=== PATIENT | female | born 1985 | race American Indian/Alaskan Native ===

== ENCOUNTER 2019-02-13 07:12 | Emergency (ER) | payer SELFPAY ==
[2019-02-13] MEDS ORDERED: FLEXERIL PO ONE (09:19)
[2019-02-13] MEDS ORDERED: TORADOL IM ONE (09:19)
--- NOTE | 2019-02-13 09:24 | Emergency Department Report ---
ED Neck Pain/Injury HPI - General Chief Complaint: Back Pain/Injury Stated Complaint: NECK/BACK PAIN/SOB Time Seen by Provider: 02/13/19 09:11 Mode of arrival: Wheelchair Limitations: No Limitations - History of Present Illness Initial Comments: Physical [id number] female ambulatory in no prior-medical conditions presents complaining of back pain times this morning. Patient states when she called this morning she felt pain localized to the neck and upper back region. Patient denies any trauma, injuries or falls. She denies fevers/chills/headache/visual disturbances. Patient states pain MD Complaint: neck pain, upper back pain -: Sudden (this morning) Place: home Severity: moderate Severity scale (0 -10): 8 Quality: stabbing, aching Consistency: constant, intermittent Worsens With: movement of neck Context: unknown Associated Symptoms: denies: difficulty walking, difficulty swallowing - Related Data Previous Rx's Medication Instructions Recorded Last Taken Type Cyclobenzaprine [Flexeril] 10 mg PO QHS PRN #20 tablet 02/13/19 Unknown Rx Naproxen [Naprosyn] 500 mg PO BID #30 tablet 02/13/19 Unknown Rx Allergies Allergy/AdvReac Type Severity Reaction Status Date / Time No Known Allergies Allergy Verified 02/13/19 10:10 ED Review of Systems ROS: Stated complaint: NECK/BACK PAIN/SOB Other details as noted in HPI ED Past Medical Hx - Past Medical History Previous Medical History?: No - Surgical History Additional Surgical History: TUBES REMOVED - Social History Smoking Status: Never Smoker Substance Use Type: None - Medications Home Medications: Home Medications Medication Instructions Recorded Confirmed Last Taken Type Cyclobenzaprine [Flexeril] 10 mg PO QHS PRN #20 tablet 02/13/19 Unknown Rx Naproxen [Naprosyn] 500 mg PO BID #30 tablet 02/13/19 Unknown Rx ED Physical Exam - General Limitations: No Limitations General appearance: alert, in no apparent distress - Head Head exam: Present: atraumatic, normocephalic - Eye Eye exam: Present: normal appearance - ENT ENT exam: Present: mucous membranes moist - Neck Neck exam: Present: normal inspection, tenderness, full ROM (with pain), other (no nucal rigidity). Absent: lymphadenopathy - Respiratory Respiratory exam: Present: normal lung sounds bilaterally. Absent: respiratory distress - Cardiovascular Cardiovascular Exam: Present: regular rate, normal rhythm. Absent: systolic murmur, diastolic murmur, rubs, gallop - GI/Abdominal GI/Abdominal exam: Present: soft, normal bowel sounds - Extremities Exam Extremities exam: Present: normal inspection - Back Exam Back exam: Present: normal inspection - Neurological Exam Neurological exam: Present: alert, oriented X3 - Psychiatric Psychiatric exam: Present: normal affect, normal mood - Skin Skin exam: Present: warm, dry, intact, normal color. Absent: rash ED Course Vital Signs 02/13/19 02/13/19 02/13/19 07:29 09:33 12:15 Temperature 97.4 F L 98.0 F Pulse Rate 79 61 Respiratory 24 20 16 Rate Blood Pressure 106/79 107/75 [Left] O2 Sat by Pulse 100 100 Oximetry - Reevaluation(s) Reevaluation #1: Patient received pain medication, Upon reassessment at this time Patient is no longer in distress she is not crying. Patient states she feels better. She is laying down in the ED bed. She is able to move her neck. Full range of motion. 02/13/19 10:11 ED Medical Decision Making - Radiology Data Radiology results: report reviewed, image reviewed CT CERVICAL SPINE WITHOUT CONTRAST INDICATION: Posterior neck pain for one day. TECHNIQUE: Axial imaging performed through the cervical without the use of contrast. Sagittal and coronal reconstructed images were also reviewed. All CT scans at this location are performed using CT dose reduction for ALARA by means of automated exposure control. COMPARISON: None FINDINGS: Alignment: The dens is slightly displaced to the right side with respect to the C1 ring on the axial images. There is no evidence for odontoid fracture. Bones: There is no acute osseous abnormality. The disc spaces and posterior elements are unremarkable. No significant degenerative changes are identified. Soft tissues: No acute or significant incidental soft tissue abnormality. IMPRESSION: No acute abnormality. Signer Name: Brian Fisher Jr, MD Signed: 02/13/2019 11:29 AM Workstation Name: [id number] Transcribed By: TTR Dictated By: BRIAN FISHER JR, MD Electronically Authenticated By: BRIAN FISHER JR, MD Signed Date/Time: 02/13/19 1129 - Medical Decision Making 33-year-old female presents with muscle spasm of the neck. CT scan shows no acute findings. reported above. Discussed this findings with the patient. Discussed findings to follow up with primary care physician. Patient is resting comfortably. Patient understands instructions and will follow up as given. Vital signs are normal she is in no acute respiratory distress Critical care attestation.: If time is entered above; I have spent that time in minutes in the direct care of this critically ill patient, excluding procedure time. ED Disposition Clinical Impression: Neck muscle spasm Disposition: DC- TO HOME OR SELFCARE Is pt being admited?: No Does the pt Need Aspirin: No Condition: Stable Instructions: Muscle Spasm (ED) Additional Instructions: Make sure to follow up with the primary care physician as discussed. Take all your medications as you've been prescribed. If you have any worsening symptoms or develop new symptoms please return to ED immediately. Prescriptions: Cyclobenzaprine [Flexeril] 10 mg PO QHS PRN #20 tablet PRN Reason: Muscle Spasm Naproxen [Naprosyn] 500 mg PO BID #30 tablet Referrals: STEVE VIRAMONTES MD [Primary Care Provider] - 3-5 Days Forms: Work/School Release Form
[2019-02-13] MEDS ORDERED: TORADOL ONE (09:27)
--- NOTE | 2019-02-13 11:33 | Cat Scan Report ---
CT CERVICAL SPINE WITHOUT CONTRAST INDICATION: Posterior neck pain for one day. TECHNIQUE: Axial imaging performed through the cervical without the use of contrast. Sagittal and c oronal reconstructed images were also reviewed. All CT scans at this location are performed using CT dose reduction for ALARA by means of automated exposure control. COMPARISON: None FINDINGS: Alignment: The dens is slightly displaced to the right side with respect to the C1 ring on the axial images. There is no evidence for odontoid fracture. Bones: There is no acute osseous abnormality. The disc spaces and posterior elements are unremarkab le. No significant degenerative changes are identified. Soft tissues: No acute or significant incidental soft tissue abnormality. IMPRESSION: No acute abnormality. Signer Name: Brian Richards Jr, MD Signed: 02/13/2019 11:29 AM Workstation Name: [id number]
[2019-02-13 12:16] VITALS: BP 107/75
== END 2019-02-13 12:24 | disposition home or self-care (01) ==
LOC: ED 07:12
DX: M62.838 Other muscle spasm (principal)
CPT/HCPCS: 72125; 96372; 99283; J1885